=== PATIENT | male | born 1965 | race Caucasian/White ===

== ENCOUNTER 2017-10-26 21:25 | Inpatient (IN) | payer MEDICARE, MEDICAID ==
[~2017-10-26] VITALS: Ht 180.3 cm; Wt 68.5 kg
[2017-10-26] MEDS ORDERED: LORAZEPAM 1 MG TABLET PO PRN (23:00)
[2017-10-26] MEDS ORDERED: ACETAMINOPHEN 325 MG TABLET PO PRN (23:00)
[2017-10-26] MEDS ORDERED: MAG HYDROX/AL HYDROX/SIMETH 30 ML UDC PO PRN (23:00)
[2017-10-26] MEDS ORDERED: TEMAZEPAM 7.5 MG CAPSULE PO PRN (23:00)
[2017-10-26] MEDS ORDERED: MAGNESIUM HYDROXIDE 30 ML UDC PO PRN (23:00)
[2017-10-27] MEDS ORDERED: IBUP-1953 PO (00:15)
[2017-10-27] MEDS ORDERED: BENZ1TAB7 PO (00:15)
[2017-10-27] MEDS ORDERED: METH500T PO (00:15)
[2017-10-27] MEDS ORDERED: HALO5TAB PO (00:15)
[2017-10-27] MEDS ORDERED: LACT10SO PO (00:16)
[2017-10-27] MEDS ORDERED: IBUPROFEN 400 MG TABLET PO SCH (00:30)
[2017-10-27 07:05] LABS: CREATININE 0.9 mg/dL (0.6-1.3)
[2017-10-27 08:00] VITALS: BP 114/68
[2017-10-27 09:00] VITALS: BP 114/68
[2017-10-27] MEDS: LACTULOSE 10 G/15 ML UDC (PYXIS) PO SCH (09:27)
[2017-10-27] MEDS: NICOTINE PATCH (21MG) 21 MG PATCH.TD24 TD SCH (09:30)
[2017-10-27 16:00] VITALS: BP 107/65
[2017-10-27 20:58] VITALS: BP 114/75
[2017-10-27] MEDS: BENZTROPINE MESYLATE (1 MG) 1 MG TABLET PO SCH (21:26)
[2017-10-27] MEDS: HALOPERIDOL 5 MG TABLET PO SCH (21:26)
[2017-10-28 07:32] LABS: BASOPHILS # (AUTO) 0.1 /CMM (0.0-0.2); BASOPHILS % (AUTO) 0.8 % (0.0-2.0); EOSINOPHILS % (AUTO) 3.1 % (0.0-6.0); HEMATOCRIT 51 % (39-51); HEMOGLOBIN 16.9 g/dL (13.5-17.5); LYMPHOCYTES # (AUTO) 2.5 /CMM (0.8-4.8); LYMPHOCYTES % (AUTO) 37.9 % (20.0-44.0); MEAN CORPUSCULAR HEMOGLOBIN 30 PG (26.0-33.0); MEAN CORPUSCULAR HGB CONC 33 g/dl (31.0-36.0); MEAN CORPUSCULAR VOLUME 92 fL (80-96); MONOCYTES # (AUTO) 0.5 /CMM (0.1-1.30); MONOCYTES % (AUTO) 7.9 % (2.0-12.0); NEUTROPHILS # (AUTO) 3.3 /CMM (1.8-8.9); NEUTROPHILS % (AUTO) 50.3 % (43.0-81.0); PLATELET COUNT (AUTO) 200 /CMM (150-450); RDW COEFFICIENT OF VARIATION 15.2 (11.5-15.0); RED BLOOD CELL COUNT(AUTO) 5.58 MIL/uL (4.5-6.0); WHITE BLOOD COUNT (AUTO) 6.6 K/uL (4.3-11.0)
[2017-10-28 07:51] LABS: ALBUMIN 3.9 g/dL (3.4-5.0); BILIRUBIN,TOTAL 0.5 mg/dL (0.2-1.0); CALCIUM, SERUM 8.9 mg/dL (8.5-10.1); CREATININE 0.8 mg/dL (0.6-1.3); POTASSIUM 4.6 mmol/L (3.5-5.1); TOTAL PROTEIN, SERUM 7.6 g/dL (6.4-8.2)
[2017-10-28 08:00] VITALS: BP 123/68
[2017-10-28] MEDS: HALOPERIDOL 5 MG TABLET PO SCH ×2 (08:53→16:37)
[2017-10-28] MEDS: BENZTROPINE MESYLATE (1 MG) 1 MG TABLET PO SCH ×2 (08:53→16:37)
[2017-10-28] MEDS: HALOPERIDOL 1 MG TABLET PO SCH (08:53)
[2017-10-28] MEDS: NICOTINE PATCH (21MG) 21 MG PATCH.TD24 TD SCH (08:53)
[2017-10-28] MEDS: LACTULOSE 10 G/15 ML UDC (PYXIS) PO SCH (08:57)
[2017-10-28] MEDS ORDERED: FLUOXETINE HCL 20 MG/5 ML UDC PO SCH (09:00)
--- NOTE | 2017-10-28 12:49 | NUR ---
Initial Discharge Plan: Pt currently resides at an independent living located at [address] [place] [address]; ([phone]). Per pt, he would like to return there. SW will work with the pt and the MD regarding appropriate discharge plans. SW will form a safe and proper discharge.
--- NOTE | 2017-10-28 12:50 | NUR ---
JAMAL called the pt's father, Rocco ([phone]), per pt's request to receive the phone number for the independent living.
--- NOTE | 2017-10-28 12:50 | NUR ---
SW called Brigido ([phone]) from the independent living and left a message on her voicemail regarding the pt.
--- NOTE | 2017-10-28 12:51 | NUR ---
Brigido ([phone]) from the independent living called the SW and stated that the pt cannot return to the independent living. The SW stated that she needs to provide a 30 day notice legally and she stated that she already had.
[2017-10-28] MEDS: FLUOXETINE HCL 20 MG CAPSULE PO SCH (13:10)
[2017-10-28 16:00] VITALS: BP 125/72
[2017-10-28 20:19] VITALS: BP 109/62
[2017-10-29 08:00] VITALS: BP 123/65
[2017-10-29] MEDS: HALOPERIDOL 1 MG TABLET PO SCH (08:54)
[2017-10-29] MEDS: HALOPERIDOL 5 MG TABLET PO SCH ×3 (08:54→21:19)
[2017-10-29] MEDS: LACTULOSE 10 G/15 ML UDC (PYXIS) PO SCH (08:54)
[2017-10-29] MEDS: BENZTROPINE MESYLATE (1 MG) 1 MG TABLET PO SCH ×2 (08:54→16:41)
[2017-10-29] MEDS: NICOTINE PATCH (21MG) 21 MG PATCH.TD24 TD SCH (08:55)
[2017-10-29] MEDS: FLUOXETINE HCL 20 MG CAPSULE PO SCH (09:00)
--- NOTE | 2017-10-29 09:10 | NUR ---
NURSING NOTE PT REFUSED PROZAC PO THIS MORNING STATED "IT MAKES ME FEEL VERY SEDATED AND SLEEPY". WILL CONTINUE TO MONITOR FOR SAFETY AND BEHAVIOR.
[2017-10-29 16:00] VITALS: BP 122/71
--- NOTE | 2017-10-29 17:00 | NUR ---
NURSING NOTE PT REFUSED COGENTIN 1MG PO AND HALDOL 10MG PO STATED "I WANT TO TAKE IT EVERY 12 HOURS BECAUSE IT MAKES ME FEEL VERY SEDATED, I WANT TO TAKE IT AT 9PM INSTEAD". WILL NOTIFY OF PT'S REQUESTS. WILL CONTINUE TO MONITOR FOR SAFETY AND BEHAVIOR.
[2017-10-29 19:33] VITALS: BP 129/77
--- NOTE | 2017-10-29 21:19 | NUR ---
GPS-RN PATIENT REFUSED SCHEDULED MED HALDOL PO. EDUCATION AND ENCOURAGEMENT GIVEN. PATIENT STILL STRONGLY REFUSED.
--- NOTE | 2017-10-30 08:00 | NUR ---
GPS RN AM NOTES PATIENT IN ROOM RESTING COMFORTABLY, ALERT AND ORIENTED X 3-4, NO ACUTE DISTRESS NOTED. PATIENT IS ISOLATIVE, WITHDRAWN, KEEPS TO HIMSELF MOST OF THE TIME. DENIES PAIN.AMBULATES INDEPENDENTLY.NEEDS ATTENDED AND ANTICIPATED. DENIES SI OR HALLUCINATIONS. ROOM CHECKED FOR SAFETY AT EACH CARE INTERACTION. WILL CONTINUE TO MONITOR Q15MIN ROUNDS FOR SAFETY AND BEHAVIOR.
[2017-10-30 08:37] VITALS: BP 120/75
[2017-10-30] MEDS: NICOTINE PATCH (21MG) 21 MG PATCH.TD24 TD SCH (08:58)
[2017-10-30] MEDS: HALOPERIDOL 1 MG TABLET PO SCH (08:58)
[2017-10-30] MEDS: LACTULOSE 10 G/15 ML UDC (PYXIS) PO SCH (08:58)
[2017-10-30] MEDS: BENZTROPINE MESYLATE (1 MG) 1 MG TABLET PO SCH ×2 (08:58→16:56)
--- NOTE | 2017-10-30 11:22 | NUR ---
JAMAL faxed a referral to [facility] ([phone]) to Tash and she stated that the DON is reviewing it.
[2017-10-30 16:33] VITALS: BP 132/82
--- NOTE | 2017-10-30 18:11 | NUR ---
PT RESTING ON/OFF IN BED AND GOES TO THE DINING ROOM ON/OFF.DENIES PAIN OR DISTRESS.COMPLAINT WITH MEDS.
--- NOTE | 2017-10-30 19:00 | NUR ---
PT CALM AND COMPLIANT WITH MEDS.
[2017-10-30 20:00] VITALS: BP 119/71
[2017-10-30] MEDS: HALOPERIDOL 5 MG TABLET PO SCH (21:29)
[2017-10-31 08:00] VITALS: BP 129/81
[2017-10-31] MEDS: NICOTINE PATCH (21MG) 21 MG PATCH.TD24 TD SCH (08:09)
[2017-10-31] MEDS: BENZTROPINE MESYLATE (1 MG) 1 MG TABLET PO SCH ×2 (08:09→16:15)
[2017-10-31] MEDS: HALOPERIDOL 1 MG TABLET PO SCH (08:09)
[2017-10-31] MEDS: LACTULOSE 10 G/15 ML UDC (PYXIS) PO SCH (08:10)
[2017-10-31 16:00] VITALS: BP 113/71
[2017-10-31 20:00] VITALS: BP 123/72
[2017-10-31] MEDS: HALOPERIDOL 5 MG TABLET PO SCH (21:24)
[2017-11-01 08:00] VITALS: BP 136/84
[2017-11-01] MEDS: HALOPERIDOL 1 MG TABLET PO SCH (08:56)
[2017-11-01] MEDS: BENZTROPINE MESYLATE (1 MG) 1 MG TABLET PO SCH ×2 (08:57→17:31)
[2017-11-01] MEDS: LACTULOSE 10 G/15 ML UDC (PYXIS) PO SCH (09:00)
[2017-11-01] MEDS: NICOTINE PATCH (21MG) 21 MG PATCH.TD24 TD SCH (09:13)
[2017-11-01 16:02] VITALS: BP 114/71
[2017-11-01 20:00] VITALS: BP 133/73
[2017-11-01] MEDS: HALOPERIDOL 5 MG TABLET PO SCH (21:59)
[2017-11-02 08:00] VITALS: BP 127/72
[2017-11-02] MEDS: LACTULOSE 10 G/15 ML UDC (PYXIS) PO SCH (08:42)
[2017-11-02] MEDS: NICOTINE PATCH (21MG) 21 MG PATCH.TD24 TD SCH (08:42)
[2017-11-02] MEDS: IBUPROFEN 600 MG TABLET PO PRN ×2 (08:43→17:23)
[2017-11-02] MEDS: BENZTROPINE MESYLATE (1 MG) 1 MG TABLET PO SCH ×2 (08:43→17:23)
[2017-11-02] MEDS: HALOPERIDOL 1 MG TABLET PO SCH (08:43)
[2017-11-02] MEDS: METHOCARBAMOL (500MG) 500 MG TABLET PO PRN (14:17)
[2017-11-02 16:00] VITALS: BP 121/78
[2017-11-02 19:55] VITALS: BP 122/69
[2017-11-02] MEDS: HALOPERIDOL 5 MG TABLET PO SCH (21:39)
[2017-11-03 08:00] VITALS: BP 127/69
[2017-11-03] MEDS: NICOTINE PATCH (21MG) 21 MG PATCH.TD24 TD SCH (08:32)
[2017-11-03] MEDS: LACTULOSE 10 G/15 ML UDC (PYXIS) PO SCH (08:33)
[2017-11-03] MEDS: HALOPERIDOL 1 MG TABLET PO SCH (08:33)
[2017-11-03] MEDS: BENZTROPINE MESYLATE (1 MG) 1 MG TABLET PO SCH ×2 (08:33→16:34)
[2017-11-03] MEDS: IBUPROFEN 600 MG TABLET PO PRN ×2 (11:55→19:57)
--- NOTE | 2017-11-03 11:55 | NUR ---
[id number]: GAVE MOTRIN 600 MG PO DUE TO GENERALIZED PAIN UPON PT REQUEST AND WILL CONTINUE TO MONITOR FOR EFFECTIVENESS OF MEDICATION
[2017-11-03 16:00] VITALS: BP 124/79
[2017-11-03] MEDS: METHOCARBAMOL (500MG) 500 MG TABLET PO PRN (16:34)
--- NOTE | 2017-11-03 16:34 | NUR ---
[id number]: GAVE ROBAXIN 500 MG PO DUE TO GENERALIZED PAIN UPON PT REQUEST AND WILL CONTINUE TO MONITOR FOR EFFECTIVENESS OF MEDICATION
[2017-11-03 20:09] VITALS: BP 128/76
[2017-11-03] MEDS: HALOPERIDOL 5 MG TABLET PO SCH (21:10)
[2017-11-04 08:00] VITALS: BP 120/75
[2017-11-04] MEDS: NICOTINE PATCH (21MG) 21 MG PATCH.TD24 TD SCH (08:51)
[2017-11-04] MEDS: LACTULOSE 10 G/15 ML UDC (PYXIS) PO SCH (08:51)
[2017-11-04] MEDS: HALOPERIDOL 1 MG TABLET PO SCH (08:51)
[2017-11-04] MEDS: BENZTROPINE MESYLATE (1 MG) 1 MG TABLET PO SCH ×2 (08:51→16:05)
[2017-11-04] MEDS: METHOCARBAMOL (500MG) 500 MG TABLET PO PRN (10:13)
--- NOTE | 2017-11-04 10:13 | NUR ---
[id number]: GAVE ROBAXIN 500 MG PO DUE TO GENERALIZED PAIN 08/10 UPON PT REQUEST AND WILL CONTINUE TO MONITOR FOR EFFECTIVENESS OF MEDICATION
--- NOTE | 2017-11-04 10:46 | NUR ---
Tash ([phone]) from [facility] will be assessing the pt today because the DON said no based off the referral but depending on how he presents he may be accepted.
[2017-11-04 16:00] VITALS: BP 129/81
[2017-11-04] MEDS: IBUPROFEN 600 MG TABLET PO PRN (16:14)
--- NOTE | 2017-11-04 16:14 | NUR ---
[id number]: GAVE MOTRIN 600 MG PO DUE TO GENERALIZED PAIN UPON PT REQUEST AND WILL CONTINUE TO MONITOR FOR EFFECTIVENESS OF MEDICATION
--- NOTE | 2017-11-04 20:00 | NUR ---
RECEIVED PT FROM GPS FLOOR IN STAB;E CONDITION.BREATHING EVENLY. NO SOB. NO BEHAVIORAL ISSUE NOTED . RATHER REMAINED QUIET AND ISOLATED, NO SUICIDAL VERBALIZATION AT THIS TIME. REMAINED CALM, AND QUIET. NEEDS ATTENDED. REMAINED WITH A SITTER FOR FURTHER OBSERVATION AND SAFETY, WILL CONT TO MONITOR,
[2017-11-04 21:00] VITALS: BP 128/77
[2017-11-04] MEDS: HALOPERIDOL 5 MG TABLET PO SCH (21:13)
--- NOTE | 2017-11-05 06:39 | NUR ---
PT IN BED SLEEPING. BREATHING EVENLY. NO SOB. STABLE W/ NO ACUTE EVENT DURING THE NIGHT . NO BEHAVIORAL PROBLEM. NO VERBALIZATION OF SUICIDE. NO C/O PAIN OR DISCOMFORT. REMAINED ON 1:1 SITTER FOR SAFETY. NEEDS ATTENDED . CALL LIGHT WITHIN REACH . WILL CONT TO MONITOR AND WILL ENDORSE TO AM SHIFT FOR LINDA.
--- NOTE | 2017-11-05 07:30 | NUR ---
RECEIVED PATIENT IN BED RESTING. NO ACUTE DISTRESS, NO SOB. DENIED PAIN OR DISCOMFORT. CALM AND COOPERATIVE, NO BEHAVIORAL PROBLEMS, NO SI. SITTER AT BEDSIDE FOR SAFETY. BED IN LOW/LOCKED POSITION, SIDERAILS UPX2. WILL CONTINUE TO MONITOR ACCORDINGLY.
[2017-11-05 08:00] VITALS: BP 125/81
[2017-11-05] MEDS: BENZTROPINE MESYLATE (1 MG) 1 MG TABLET PO SCH ×2 (08:35→16:07)
[2017-11-05] MEDS: METHOCARBAMOL (500MG) 500 MG TABLET PO PRN (08:35)
[2017-11-05] MEDS: HALOPERIDOL 1 MG TABLET PO SCH (08:36)
[2017-11-05] MEDS: LACTULOSE 10 G/15 ML UDC (PYXIS) PO SCH (08:37)
[2017-11-05] MEDS: NICOTINE PATCH (21MG) 21 MG PATCH.TD24 TD SCH (08:37)
[2017-11-05] MEDS: IBUPROFEN 600 MG TABLET PO PRN (10:21)
--- NOTE | 2017-11-05 12:55 | NUR ---
JAMAL called the pt's father, Rocco ([phone]), and informed him of the discharge plan of having the pt go to [facility]dc facility called [facility] or other ones that the SW sent referrals to.
[2017-11-05 16:00] VITALS: BP 108/66
--- NOTE | 2017-11-05 19:14 | NUR ---
PATIENT IN STABLE CONDITION. ALL NEEDS ATTENDED AND PROVIDED. ALL DUE MEDS GIVEN ORDERED. SITTER AT BEDSIDE FOR SAFETY. KEPT PATIENT SAFE AND COMFORTABLE. BED IN LOW/LOCKED POSITION, SIDERAILS UPX2. ENDORSED TO NIGHT RN FOR LINDA.
--- NOTE | 2017-11-05 19:20 | NUR ---
RN OPENING NOTES RECEIVED PT IN BED, ASLEEP AT THIS TIME, AROUSES EASILY.A/O X 3, VERBALLY RESPONSIVE. NO DISTRESS NOR SOB NOTED, RESPIRATION IS EVEN AND UNLABORED. 02 SAT IS 97 % ON RA. CALM & COOPERATIVE AT THIS TIME. NO C/O PAIN OR DISCOMFORT AT THIS TIME. DENIES SI. ALL NEEDS ATTENDED AND MET. SAFETY PRECAUTIONS OBSERVED. ON 1:1 SITTER. WILL CONT TO MONITOR.
[2017-11-05 20:00] VITALS: BP 127/68
[2017-11-05] MEDS: HALOPERIDOL 5 MG TABLET PO SCH (22:23)
--- NOTE | 2017-11-06 06:46 | NUR ---
RN CLOSING NOTES PT IN BED, ASLEEP AT THIS TIME, AROUSES EASILY. A/O X 3, VERBALLY RESPONSIVE. NO DISTRESS NOR SOB NOTED, RESPIRATION IS EVEN AND UNLABORED. CALM & COOPERATIVE AT THIS TIME. NO C/O PAIN OR DISCOMFORT AT THIS TIME. DENIES SI. PT IS AMBULATORY. ALL NEEDS ATTENDED AND MET. SAFETY PRECAUTIONS OBSERVED. ON 1:1 SITTER. WILL ENDORSE TO NEXT SHIFT ACCORDINGLY FOR LINDA.
--- NOTE | 2017-11-06 07:31 | NUR ---
GPS OVERFLOW RN OPENING NOTES RECEIVED PATIENT IN STABLE CONDITION. IN NO APPARENT DISTRESS. BEDSIDE RAILS ARE UPX2. BED IS LOCKED AND LOWERED. CALL LIGHT IS WITHIN REACH. SITTER IS AT THE BEDSIDE. WILL CONTINUE TO MONITOR PATIENT.
[2017-11-06 07:51] VITALS: BP 117/66
[2017-11-06] MEDS: LACTULOSE 10 G/15 ML UDC (PYXIS) PO SCH (08:14)
[2017-11-06] MEDS: NICOTINE PATCH (21MG) 21 MG PATCH.TD24 TD SCH (08:15)
[2017-11-06] MEDS: BENZTROPINE MESYLATE (1 MG) 1 MG TABLET PO SCH (08:15)
[2017-11-06] MEDS: HALOPERIDOL 1 MG TABLET PO SCH (08:15)
[2017-11-06] MEDS: METHOCARBAMOL (500MG) 500 MG TABLET PO PRN (08:21)
--- NOTE | 2017-11-06 09:30 | NUR ---
RN-CO: DR HOLCOMB GAVE AN ORDER TO DISCHARGE PATIENT, NOTED AND CARRIED OUT.
--- NOTE | 2017-11-06 09:30 | NUR ---
RN-CO: DR HOLCOMB ORDERED TO DISCONTINUE HOLD AND DISCHARGE PATIENT TODAY.
--- NOTE | 2017-11-06 11:28 | NUR ---
GPS OVERFLOW DISCHARGE NOTES PATIENT DISCHARGED IN STABLE CONDITION. IN NO APPARENT DISTRESS. DENIES SUICIDAL IDEATION AND HOMICIDAL IDEATION. ALL NEEDS WERE MET. EXITCARE PROVIDED TO THE PATIENT. PRESCRIPTIONS GIVEN TO THE PATIENT. PATIENT ESCORTED OUT OF THE FACILITY VIA AMBULANCE WITH EMT. ID BAND WAS REMOVED. PATIENT DID NOT HAVE AN IV ACCESS.
--- NOTE | 2017-11-06 13:23 | NUR ---
Tash ([phone]) from [facility] stated that the pt was accepted to the facility.
--- NOTE | 2017-11-06 13:23 | NUR ---
Discharge Note: Pt was discharged to [facility] ([facility]) located at [address] [place] [address]; ([phone]). Pt was transported via [facility] (Trip #[id number]) at 11AM. Pt was picked up from Room 206-2 and will be dropped off at Room 20B. Upon discharge, the pt was in a euthymic mood and presented with an anxious affect. He stated that he was excited to be able to smoke. Pt stated that he does not have any suicidal or homicidal ideation and does not have any auditory or visual hallucinations. Pt was provided with substance abuse referrals as well as smoking cessations referrals. Pt will be under the care of psychiatrist, Dr. Iyer, located at [address] [place] [address]; ([phone]) and butadiene compressor operator, Dr. Jeronimo, located at [address], [place] [address]; ([phone]). Substance Abuse Referrals: [facility] [address] [place] [address] Tel. [facility] [address] [place] Provider Mental Health Treatment Tele-dermatology HIV Services Telemedicine Services [place] [address] [place] [address] [facility] [address] [place] [address] Smoking Cessation Referrals: [facility] [email or web address]-LUNGUSA [facility] [phone]
== END 2017-11-06 11:28 | DRG 885 ==
LOC: GPS 22:15 → GPSOV2 11-04 18:36
PROVIDERS: ADMIT Psychiatry & Neurology Psychiatry; ATTEND Nurse Practitioner Acute Care
DX: F25.1 Schizoaffective disorder, depressive type (principal); F23 Brief psychotic disorder; F41.9 Anxiety disorder, unspecified; F43.10 Post-traumatic stress disorder, unspecified; M19.90 Unspecified osteoarthritis, unspecified site; F17.210 Nicotine dependence, cigarettes, uncomplicated
CPT/HCPCS: 36415; 80053-TC; 80061-TC; 82565-TC; 85025-TC; 87081-TC; Z7610